=== PATIENT | male | born 1960 | race African-American/Black ===

== ENCOUNTER 2025-05-03 09:24 | Outpatient (CLI) | payer OTHER ==
[2025-05-03 10:34] LABS: Estimated GFR - POC 61.0
[2025-05-03] MEDS ORDERED: Iopamidol 370 76% 100 ML VIAL ONE (13:24)
== END 2025-05-03 09:25 | disposition home or self-care (01) ==
LOC: CT 09:24
PROVIDERS: ATTEND Internal Medicine
DX: C16.9 Malignant neoplasm of stomach, unspecified (principal); J98.4 Other disorders of lung; K63.89 Other specified diseases of intestine; Z90.49 Acquired absence of other specified parts of digestive tract
CPT/HCPCS: 36000; 36415; 71260; 74177; 82565; Q9967